=== PATIENT | female | born 1945 | race Two or more races ===

== ENCOUNTER 2020-06-26 01:55 | Emergency (ER) | payer SELFPAY ==
[~2020-06-26] VITALS: Ht 170.2 cm; Wt 56.7 kg
--- NOTE | 2020-06-26 02:06 | NUR ---
ED Nurse Note: Pt was brought in by ambulance. Pt is axox4 vitals are stable on RA. She states that she fell off her bed and hit both her right shoulder and head. She is co 5/10 pain in her shoulder. She states she has a history of Parkinsons and she has visable tremors on assesment. Per EMS she was not able to stand up from where she fell and she had difficulty walking. Addendum: 06/26/20 at 0217 by LEONARD Brought in from home by [facility].
--- NOTE | 2020-06-26 02:08 | Emergency Room Report ---
History of Present Illness General Chief Complaint: To Be Triaged Source: Patient, EMS Present Illness HPI 74-year-old female here after a fall out of bed. Patient has severe Parkinson's and is bedbound and wheelchair-bound at her baseline. She is nonambulatory. She was in bed and said that she woke up in the middle the night "in my leg was off the bed." She said that she tried to adjust herself to bring her leg back onto the bed but inadvertently slipped out of bed falling onto her right shoulder. She did hit her head on the ground. She is approximates that she felt 2 feet onto a hardwood floor. Does not take blood thinners. No loss of consciousness. She is complaining of some very mild pain in her midline neck. No focal numbness or weakness. Allergies: Coded Allergies: IODINE (Verified Allergy, Intermediate, 06/26/20) COVID-19 Screening Contact w/high risk pt: No Experienced COVID-19 symptoms?: No COVID-19 Testing performed DIRECTOR OF STRATEGIC INITIATIVES: No Patient History Now: No Nursing Documentation-[facility] Past Medical History: No History, Except For Hx Neurological Problems: Yes - parkinsons Review of Systems All Other Systems: negative except mentioned in HPI Physical Exam Vital Signs Date Time Temp Pulse Resp B/P (MAP) Pulse Ox O2 Delivery O2 Flow Rate FiO2 06/26/20 01:50 98.1 81 16 145/75 (98) 98 Sp02 EP Interpretation: reviewed, normal General Appearance: no apparent distress, alert, non-toxic Head: normocephalic, other - Mild subjective tenderness on palpation of the right parietotemporal region. No obvious deformities Eyes: bilateral eye normal inspection, bilateral eye PERRL ENT: hearing grossly normal, normal pharynx, no angioedema, normal voice Neck: full range of motion, supple/symm/no masses, other - Mild pain of the C6 and C7 spinous process. No step-offs or deformities Respiratory: chest non-tender, lungs clear, normal breath sounds, speaking full sentences Cardiovascular #1: regular rate, rhythm, no edema Cardiovascular #2: 2+ carotid (R), 2+ carotid (L), 2+ radial (R), 2+ radial (L), 2+ dorsalis pedis (R), 2+ dorsalis pedis (L) Gastrointestinal: normal bowel sounds, non tender, soft, non-distended, no guarding, no rebound Rectal: deferred Genitourinary: normal inspection, no CVA tenderness Musculoskeletal: back normal, normal range of motion, calf tenderness, non- tender Neurologic: alert, oriented x3, sensory intact, responsive, speech normal, other - Awake and alert. Contractures of the lower extremities bilaterally. Upper extremity parkinsonian tremor Psychiatric: judgement/insight normal, memory normal, mood/affect normal, no suicidal/homicidal ideation Reflexes: 3+ bicep (R), 3+ bicep (L), 3+ tricep (R), 3+ tricep (L), 3+ knee (R), 3+ knee (L) Lymphatic: no adenopathy Medical Decision Making Diagnostic Impression: Primary Impression: Fall Additional Impression: Shoulder pain ER Course 74-year-old female bedbound and wheelchair-bound at her baseline, nonambulatory, here after a fall out of bed. Patient was hemodynamically stable and neurovascular intact. She does not take blood thinners. She is adamant that she never lost consciousness. CT head and CT cervical spine were unremarkable. Patient was complaining of mild shoulder pain. X-ray of the right shoulder was unremarkable as well. Patient takes p.o. Dilaudid at home for her chronic pain. She was told to continue taking her pain medications as needed. Here in the emergency department. Transportation was called to bring patient back home. Patient discharged in stable condition. Patient placed in a right upper extremity sling for comfort. She was neurovascular intact before and after the sling was placed. Last Vital Signs Date Time Temp Pulse Resp B/P (MAP) Pulse Ox O2 Delivery O2 Flow Rate FiO2 06/26/20 01:50 98.1 81 16 145/75 (98) 98 Osbaldo Gracia M.D. Jun 26, 2020 02:08
--- NOTE | 2020-06-26 02:29 | NUR ---
ED Nurse Note: Pt left for Xray Addendum: 06/26/20 at 0302 by TDANCEY Correction, Pt left for CT
[2020-06-26 03:05] VITALS: BP 142/72
--- NOTE | 2020-06-26 03:22 | NUR ---
ED Nurse Note: Pt back from CT
--- NOTE | 2020-06-26 03:25 | Diagnostic Imaging Report ---
EXAM: XR Right Shoulder Complete, 2 or More Views CLINICAL HISTORY: FALL TECHNIQUE: Two or more views of the right shoulder. COMPARISON: No relevant prior studies available. FINDINGS: Bones/joints: Mild glenohumeral degenerative findings. Osteopenia. No acute fracture. No dislocation. Soft tissues: Unremarkable. Lungs: Low lung volumes with bronchovascular crowding. Possible multifocal right lung ill-defined opacities. Other findings: Irregular calcification along the lateral aspect proximal arm could represent sequela of old trauma. IMPRESSION: 1. No acute traumatic injury. 2. Mild glenohumeral degenerative findings. 3. Possible multifocal right lung ill-defined opacities. 4. Low lung volumes with bronchovascular crowding. 5. Recommend dedicated two-view chest radiographs to further evaluate chest findings. 6. Irregular calcification along the lateral aspect proximal arm could represent sequela of old trauma.
--- NOTE | 2020-06-26 03:31 | Diagnostic Imaging Report ---
EXAM: CT Head Without Intravenous Contrast CLINICAL HISTORY: FALL TECHNIQUE: Axial computed tomography images of the head/brain without intravenous contrast. CTDI is 53.40 mGy and DLP is 1205.80 mGy-cm. One or more of the following dose reduction techniques were used: automated exposure control, adjustment of the mA and/or kV according to patient size, use of iterative reconstruction technique. COMPARISON: No relevant prior studies available. FINDINGS: Brain: Parenchymal volume loss. Nonspecific white matter hypoattenuation likely secondary to chronic microvascular ischemia. Cerebrovascular ASVD. No hemorrhage. Ventricles: Unremarkable. No ventriculomegaly. Bones/joints: Unremarkable. No acute fracture. Soft tissues: Unremarkable. Sinuses: Unremarkable as visualized. No acute sinusitis. Mastoid air cells: Unremarkable as visualized. No mastoid effusion. IMPRESSION: 1. No acute intracranial abnormality. 2. Mild chronic senescent findings above.
--- NOTE | 2020-06-26 03:35 | NUR ---
ED Nurse Note: Pt is resting comfortably. Breathing is even and unlabored. Adjusted bed for comfort.
--- NOTE | 2020-06-26 04:00 | NUR ---
ED Nurse Note: attempted to verify insurance information for pt pickup, unable to verify. Addendum: 06/26/20 at 0534 by HYUN ED Nurse Note: attempted to verify insurance information, unable to verify.
--- NOTE | 2020-06-26 04:10 | NUR ---
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 Addendum: 06/26/20 at 0532 by HYUN ED Nurse Note: attempted to set up transport with [facility]; unsuccessful d/t no accepting person at pt home despite pt having personal [place] to house.
--- NOTE | 2020-06-26 04:10 | Diagnostic Imaging Report ---
EXAM: CT Cervical Spine Without Intravenous Contrast CLINICAL HISTORY: FALL TECHNIQUE: Axial computed tomography images of the cervical spine without intravenous contrast. CTDI is 20.20 mGy and DLP is 638.70 mGy-cm. One or more of the following dose reduction techniques were used: automated exposure control, adjustment of the mA and/or kV according to patient size, use of iterative reconstruction technique. COMPARISON: No relevant prior studies available. FINDINGS: Vertebrae: No acute fracture identified given the limitations of motion and. Add age-indeterminate mild anterolisthesis of C3 on C4 which may be secondary to significant facet hypertrophy and arthropathy. Discs/spinal canal/neural foramina: Advanced multilevel degenerative changes. No spinal canal stenosis. Soft tissues: Unremarkable. Other findings: Motion degraded study. IMPRESSION: Motion degraded study. No definite evidence of acute fracture. If clinical suspicion persist or there is cervical radiculopathy or myelopathy recommend MRI cervical spine.
--- NOTE | 2020-06-26 04:30 | NUR ---
ED Nurse Note: pt provided number for caregiver: - . Pt caregiver contacted for pt pickup but caregiver did not answer the phone; a message was left. Awaiting caregiver return phone call.
--- NOTE | 2020-06-26 05:20 | NUR ---
ED Nurse Note: [employer] CONTACTED, REFUSED TO LOAN SECRETARY PT
--- NOTE | 2020-06-26 06:30 | NUR ---
ED Nurse Note: pt caregiver returned phone call; states she will arrive at [phone].
--- NOTE | 2020-06-26 07:01 | NUR ---
ED Nurse Note: Received report from GLENN Carranza. Patient resting in the bed, AAOx4, all VSS at this time. 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
[2020-06-26] MEDS ORDERED: Tylenol #3 tab (300mg/30mg) ORAL ONE (08:15)
--- NOTE | 2020-06-26 08:16 | NUR ---
ED Nurse Note: spoke with caregiver, explained that pt was discharged, and she needs to be here as soon as posible
[2020-06-26 10:45] VITALS: BP 142/72
--- NOTE | 2020-06-26 11:09 | NUR ---
ER DISCHARGE NOTE: Patient is cleared to be discharged per ERMD, pt is aox4, on room air, with stable vital signs. pt was given dc and prescription instructions, pt was able to verbalize understanding, pt id band and iv site removed without complications. pt is able to ambulate with steady gait. pt took all belongings.
== END 2020-06-26 10:48 | disposition home or self-care (01) ==
LOC: EDBD 01:55 → EMR 02:16
DX: M25.511 Pain in right shoulder (principal); G20 Parkinson's disease; Z74.01 Bed confinement status; Z91.041 Radiographic dye allergy status; M85.811 Other specified disorders of bone density and structure, right shoulder
CPT/HCPCS: 70450; 72125; 99284